=== PATIENT | male | born 1965 | race Caucasian/White ===

== ENCOUNTER 2016-07-30 01:02 | Inpatient (IN) | payer MEDICARE, OTHER ==
[~2016-07-30] VITALS: Ht 177.8 cm; Wt 99.8 kg
[2016-07-30 01:27] LABS: *BILIRUBIN,URIN NEGATIVE (NEGATIVE); *BLOOD, URINE NEGATIVE (NEGATIVE); *CLARITY,URINE CLEAR (CLEAR); *COLOR,URINE YELLOW (YELLOW); *KETONES,URINE 4+ (NEGATIVE); *PROTEIN,URINE 1+ (NEGATIVE); *UROBILINOGEN,URINE 0.2 E.U./dl (NORMAL); LEUKOCYTE ESTERASE ,URINE NEGATIVE (NEGATIVE); NITRITE, URINE NEGATIVE (NEGATIVE)
[2016-07-30 01:29] LABS: UGLUCOSE 2+ (NEGATIVE)
[2016-07-30 01:32] LABS: BACTERIA,URINE FEW /HPF (NONE SEEN); RBC,URINE 0-3 /HPF (0-3); SQUAMOUS EPITHELIAL CELL,UR FEW /HPF (NONE SEEN); WBC,URINE 0-3 /HPF (0-3)
[2016-07-30] MEDS ORDERED: IV NORMAL SALINE 1000 ML BAG IV ONE (02:00)
[2016-07-30] MEDS ORDERED: HYDROMORPHONE 1 MG/1 ML DISP.SYRIN ONE (02:29)
[2016-07-30] MEDS ORDERED: ONDANSETRON 4 MG/2 ML VIAL ONE (02:29)
[2016-07-30] MEDS ORDERED: INSULIN REGULAR, HUMAN 300 UNIT/3 ML VIAL ONE (03:17)
[2016-07-30 03:38] LABS: BASOPHILS % (AUTO) 0.1 % (0.0-2.0); EOSINOPHILS % (AUTO) 0.2 % (0.0-7.0); HEMATOCRIT 46.8 % (40-50); HEMOGLOBIN 16.3 G/DL (14.0-18.0); LYMPHOCYTES # (AUTO) 0.6 K/UL (0.8-4.8); LYMPHOCYTES % (AUTO) 6.6 % (20.5-51.5); MEAN CORPUSCULAR HEMOGLOBIN 29.5 UUG (27.0-31.0); MEAN CORPUSCULAR HGB CONC 35 g/dL (32.0-37.0); MEAN CORPUSCULAR VOLUME 84.9 FL (82.0-92.0); MONOCYTES # (AUTO) 0.5 K/UL (0.1-1.30); MONOCYTES % (AUTO) 5.5 % (0.0-11.0); NEUTROPHILS # (AUTO) 8.1 K/UL (1.8-8.9); NEUTROPHILS % (AUTO) 87.6 % (38.5-71.5); PLATELET COUNT (AUTO) 243 K/UL (150-450); RED BLOOD CELL COUNT(AUTO) 5.52 MIL/UL (4.7-6.1); RED CELL DISTRIBUTION WIDTH 12.5 % (11.5-14.5); WHITE BLOOD COUNT (AUTO) 9.2 K/UL (4.0-11.2)
[2016-07-30] MEDS ORDERED: DIAZEPAM 10 MG/2 ML DISP.SYRIN ONE (04:05)
[2016-07-30] MEDS ORDERED: FURO20TA4 PO (04:40)
[2016-07-30] MEDS ORDERED: CARV12.52 PO (04:40)
[2016-07-30] MEDS ORDERED: LISI-603 PO (04:40)
[2016-07-30] MEDS ORDERED: SPIR25TA4 PO (04:40)
[2016-07-30] MEDS ORDERED: ESOM20TA PO (04:40)
[2016-07-30] MEDS ORDERED: DIAZEPAM 10 MG/2 ML DISP.SYRIN IV ONE (04:45)
[2016-07-30] MEDS ORDERED: ONDANSETRON IV *ER 4 MG/2 ML VIAL IV ONE (04:45)
[2016-07-30] MEDS ORDERED: HYDROMORPHONE 1 MG/1 ML DISP.SYRIN IV ONE (04:45)
[2016-07-30] MEDS ORDERED: INSULIN REGULAR, HUMAN 1,000 UNITS/10 ML VIAL IV ONE (04:45)
--- NOTE | 2016-07-30 05:02 | NUR ---
CALL PLACED TO [facility] FOR PANEL CALL. PENDING CALL BACK.
[2016-07-30 05:14] LABS: LACTIC ACID 1.9 mmol/L (0.4-2.0); TROPONIN I 0.021 ng/mL (0.00-0.056)
[2016-07-30 05:15] LABS: POTASSIUM 4.4 mmol/L (3.5-5.1)
[2016-07-30 05:16] LABS: ALBUMIN 3.8 g/dL (3.4-5.0); BILIRUBIN,DIRECT 0.3 mg/dL (0.0-0.2); CALCIUM 9.2 mg/dL (8.5-10.1); CREATININE 1.2 mg/dL (0.6-1.3); TOTAL PROTEIN, SERUM 8.5 g/dL (6.4-8.2)
--- NOTE | 2016-07-30 05:32 | NUR ---
Pending [facility] call back for patient admission. report given to Telemetry Charge Nurse, Sheela CULVER @ [phone].
--- NOTE | 2016-07-30 06:10 | NUR ---
Pt. admitted to Telemetry , under care of Dr. Manuelito Costello. Dx: Uncontrolled Diabetes Belongs List completed
--- NOTE | 2016-07-30 07:10 | NUR ---
RECEIVED PATIENT FROM RELATIONSHIP MANAGER
--- NOTE | 2016-07-30 07:25 | NUR ---
DR AMOR NOTIFIED OF ADMISSION AND MADE AWARE OF 2+ GLUCOSE AND 4+ KETONES IN THE BLOOD.
[2016-07-30 08:00] VITALS: BP 110/66
[2016-07-30] MEDS ORDERED: DEXTROSE 50% 50 ML DISP.SYRIN IV PRN (08:15)
[2016-07-30] MEDS ORDERED: ONDANSETRON 4 MG/2 ML VIAL IV PRN (08:15)
[2016-07-30] MEDS: INSULIN REGULAR, HUMAN 300 UNIT/3 ML VIAL SQ PRN ×4 (08:28→21:48)
[2016-07-30] MEDS: METFORMIN HCL 500 MG TABLET PO SCH ×2 (08:33→17:32)
[2016-07-30] MEDS: glyBURIDE 5 MG TABLET PO SCH (08:33)
[2016-07-30] MEDS: LISINOPRIL 20 MG TABLET PO SCH ×2 (08:34→21:41)
[2016-07-30] MEDS: CARVEDILOL 12.5 MG TABLET PO SCH ×2 (08:34→17:31)
[2016-07-30] MEDS: IV NS 1000 ML 1,000 ML IV PRN ×2 (08:39→16:08)
[2016-07-30 11:01] VITALS: BP 110/74
[2016-07-30] MEDS: BLOOD SUGAR DIAGNOSTIC 1 EACH STRIP VI SCH ×3 (11:37→21:49)
--- NOTE | 2016-07-30 12:00 | NUR ---
NO SIGNS OF INSULIN REACTION CLOSELY MONITORED
[2016-07-30] MEDS ORDERED: PANTOPRAZOLE SODIUM 40 MG TABLET.DR PO ONE (16:00)
[2016-07-30] MEDS ORDERED: PANTOPRAZOLE SODIUM 40 MG VIAL IV SCH (16:00)
[2016-07-30] MEDS: ACETAMINOPHEN 325 MG TABLET PO PRN ×2 (16:08→21:43)
[2016-07-30 16:19] VITALS: BP 95/59
--- NOTE | 2016-07-30 18:15 | NUR ---
DR FIORE IN CHANGE PT STATUS TO TELE
--- NOTE | 2016-07-30 19:10 | NUR ---
Received report from MALATHI nurse.
--- NOTE | 2016-07-30 19:50 | NUR ---
Received patient awake, conversing well with a friend in room. Complaining that his IV is leaking. Assessed, removed. Reinserted a new IV on left hand with G#20 x 1 attempt. Pt tolerated procedure well. Resume IVF as ordered.
[2016-07-30 20:00] VITALS: BP 91/53
[2016-07-30 21:41] VITALS: BP 120/84
--- NOTE | 2016-07-30 21:45 | NUR ---
Complaint of headache, tylenol given as needed and ordered.
[2016-07-31] MEDS: IV NS 1000 ML 1,000 ML IV PRN (02:05)
[2016-07-31] MEDS: ACETAMINOPHEN 325 MG TABLET PO PRN (02:29)
--- NOTE | 2016-07-31 02:33 | NUR ---
Awakened complaining of headache and chills. Checked body temperature 97.8 oral and BS 325 mg/dl. Tylenol given for complaint of headache. Continue to monitor.
[2016-07-31] MEDS: HYDROCODONE/APAP 5-325MG TABLET PO PRN ×2 (04:29→09:09)
--- NOTE | 2016-07-31 04:29 | NUR ---
Complaining of pounding headache, medicated as needed. Will monitor.
[2016-07-31 05:19] VITALS: BP 100/59
[2016-07-31] MEDS: BLOOD SUGAR DIAGNOSTIC 1 EACH STRIP VI SCH ×3 (06:33→15:40)
--- NOTE | 2016-07-31 06:56 | NUR ---
Report given to PALOMO Rizo
[2016-07-31] MEDS ORDERED: PANTOPRAZOLE SODIUM 40 MG TABLET.DR PO SCH (07:00)
--- NOTE | 2016-07-31 07:00 | NUR ---
PT IS SLEEPING IN BED COMFORTABLY. NO S/S OF RESPIRATORY DISTRESS NOTED. NO PAIN REPORTED. ALL SAFETY NEEDS ARE MET. WILL CONTINUE TO MONITOR.
[2016-07-31] MEDS: METFORMIN HCL 500 MG TABLET PO SCH (08:02)
[2016-07-31] MEDS: glyBURIDE 5 MG TABLET PO SCH (08:02)
[2016-07-31] MEDS: LISINOPRIL 20 MG TABLET PO SCH (08:03)
[2016-07-31] MEDS: CARVEDILOL 12.5 MG TABLET PO SCH (08:04)
[2016-07-31] MEDS: INSULIN REGULAR, HUMAN 300 UNIT/3 ML VIAL SQ PRN ×3 (08:06→15:40)
[2016-07-31 08:16] LABS: BASOPHILS % (AUTO) 0.3 % (0.0-2.0); EOSINOPHILS % (AUTO) 0.5 % (0.0-7.0); HEMOGLOBIN 13.6 G/DL (14.0-18.0); LYMPHOCYTES # (AUTO) 0.7 K/UL (0.8-4.8); LYMPHOCYTES % (AUTO) 13.6 % (20.5-51.5); MEAN CORPUSCULAR HEMOGLOBIN 29.5 UUG (27.0-31.0); MEAN CORPUSCULAR HGB CONC 35 g/dL (32.0-37.0); MEAN CORPUSCULAR VOLUME 84.7 FL (82.0-92.0); MONOCYTES # (AUTO) 0.7 K/UL (0.1-1.30); MONOCYTES % (AUTO) 13.2 % (0.0-11.0); NEUTROPHILS # (AUTO) 3.6 K/UL (1.8-8.9); NEUTROPHILS % (AUTO) 72.4 % (38.5-71.5); PLATELET COUNT (AUTO) 156 K/UL (150-450); RED CELL DISTRIBUTION WIDTH 12.6 % (11.5-14.5)
[2016-07-31 08:40] LABS: CALCIUM 8.5 mg/dL (8.5-10.1); CREATININE 1.1 mg/dL (0.6-1.3); MAGNESIUM 1.5 mg/dL (1.8-2.4); POTASSIUM 4.2 mmol/L (3.5-5.1)
[2016-07-31 10:39] VITALS: BP 108/68
[2016-07-31 10:40] LABS: THYROID STIMULATING HORMONE 1.461 mIU/mL (0.358-3.740)
[2016-07-31 11:09] VITALS: BP 96/59
[2016-07-31] MEDS ORDERED: INSU300I SQ (11:24)
[2016-07-31] MEDS ORDERED: PANT20TA2 PO (11:24)
[2016-07-31] MEDS ORDERED: MAGNESIUM OXIDE 400 MG TABLET PO ONE ×2 (12:15→13:30)
[2016-07-31 15:10] VITALS: BP 99/59
--- NOTE | 2016-07-31 16:00 | NUR ---
DISCHARGE NOTE: PT WAS EDUCATED ON THE USE OF GLUCOMETER, ITS FREQUENCY, MEANING OF THE LEVEL OF BLOOD SUGAR. USE OF SYRINGE, PLACEMENT OF SYRINGE. PT WAS EDUCATED IN REGARDS OF THE DIAGNOSIS, DIETARY MANAGEMENT. DEMONSTRATED TO THE PT THE LOCATION OF INJECTION TO THE PT. PHARMACIST WAS NOT ABLE TO COME TO GIVE EDUCATION, DUE TO "HIGH VOLUME OF TASKS". PT TOOK THE PRESCRIPTION. EDUCATIONAL MATERIAL WAS ALSO INCLUDED IN WRITTEN FORM. IV/WRISTBAND REMOVED. NO PAIN NOTED/REPORTED. NO S/S OF RESPIRATORY DISTRESS NOTED. V/S WNL. PT DENIED TO USE OF WHEELCHAIR, PT STATES THAT HE "DOES NOT FEEL DIZZY/WEAK." PT LEFT VIA PRIVATE CAR. BELONGINGS LIST IS SIGNED BY THE PT.
== END 2016-07-31 16:00 | disposition home or self-care (01) | DRG 638 ==
LOC: ER 01:12 → TELE 05:40 → MED 18:17
PROVIDERS: ATTEND Family Medicine
DX: E11.65 Type 2 diabetes mellitus with hyperglycemia (principal); E87.1 Hypo-osmolality and hyponatremia; K43.6 Other and unspecified ventral hernia with obstruction, without gangrene; I50.9 Heart failure, unspecified; I10 Essential (primary) hypertension; K21.9 Gastro-esophageal reflux disease without esophagitis; I25.2 Old myocardial infarction; F12.90 Cannabis use, unspecified, uncomplicated; E66.9 Obesity, unspecified; Z68.31 Body mass index [BMI] 31.0-31.9, adult; K43.9 Ventral hernia without obstruction or gangrene; D72.829 Elevated white blood cell count, unspecified; E83.42 Hypomagnesemia; K76.0 Fatty (change of) liver, not elsewhere classified; Z82.5 Family history of asthma and other chronic lower respiratory diseases; K59.00 Constipation, unspecified; I25.10 Atherosclerotic heart disease of native coronary artery without angina pectoris; K08.89 Other specified disorders of teeth and supporting structures
CPT/HCPCS: 36415; 70030-TC; 71010; 83605; 83690; 83735; 84100; 84443; 85025; 85730; 87040; 87086; 93005; A4663; J1170; J1815; J2405; J3360; J7030